=== PATIENT | female | born 1985 | race Hispanic/Latino ===

== ENCOUNTER → 2017-09-02 14:32 | Outpatient (CLI) | payer OTHER, SELFPAY ==
[2017-09-02 15:40] LABS: Add Manual Diff / Slide Review NO; Basophils Percent Auto 0.4 % (0-2); Eosinophils Percent Auto 4.6 % (2-4); Hematocrit 39.1 % (36-46); Hemoglobin 13.3 g/dL (12.0-16.0); Lymphocytes Percent Auto 17.6 % (25-40); Mean Corpuscular Volume 88.3 fL (80-100); Monocytes Percent Auto 5.5 % (3-14); Neutrophils Absolute Auto 6100 /uL (3000-5900); Neutrophils Percent Auto 71.9 % (50-75); Platelet Count 301 X10^3/uL (150-400); Red Blood Cell Count 4.43 X10^6/uL (4.0-5.2); Red Cell Distribution Width 12.6 % (11.6-14.8); White Blood Cell Count 8.4 X10^3/uL (4.5-11.0)
[2017-09-02 16:36] LABS: Hepatitis B Surface Antigen NEGATIVE s/c (NEGATIVE)
[2017-09-02 16:54] LABS: HIV 1 and 2 Antibody NEGATIVE (NEGATIVE); Hep C Virus Ab w/Reflex Quant NEGATIVE s/c (NEGATIVE)
[2017-09-04 14:04] LABS: HSV 2 IGG AB < 0.90 index (< 0.90)
[2017-09-07 18:22] LABS: Rapid Plasma Reagin NON-REACTIVE
== END ==
PROVIDERS: Visit Provider Obstetrics & Gynecology
DX: Z34.91 Encounter for supervision of normal pregnancy, unspecified, first trimester (principal)
CPT/HCPCS: 36415; 80055; 86695; 86696; 86703; 86787; 86803; 86850; 86900; 86901; 87086

== ENCOUNTER → 2017-09-04 12:59 | Outpatient (CLI) | payer OTHER, SELFPAY ==
[2017-09-04 15:13] LABS: HCG Quantitative /Beta subunit 13505 mIU/mL
== END ==
PROVIDERS: Family Provider Obstetrics & Gynecology; PCP Physician Assistant; Visit Provider Obstetrics & Gynecology
DX: Z34.91 Encounter for supervision of normal pregnancy, unspecified, first trimester (principal); Z12.4 Encounter for screening for malignant neoplasm of cervix; Z11.8 Encounter for screening for other infectious and parasitic diseases; Z11.3 Encounter for screening for infections with a predominantly sexual mode of transmission; O20.9 Hemorrhage in early pregnancy, unspecified
CPT/HCPCS: 36415; 84702

== ENCOUNTER → 2017-09-06 11:38 | Outpatient (CLI) | payer OTHER, SELFPAY ==
[2017-09-06 12:52] LABS: HCG Quantitative /Beta subunit 11247 mIU/mL
== END ==
PROVIDERS: Family Provider Obstetrics & Gynecology; PCP Physician Assistant; Visit Provider Obstetrics & Gynecology
DX: O20.9 Hemorrhage in early pregnancy, unspecified (principal); Z34.91 Encounter for supervision of normal pregnancy, unspecified, first trimester; Z12.4 Encounter for screening for malignant neoplasm of cervix; Z11.8 Encounter for screening for other infectious and parasitic diseases; Z11.3 Encounter for screening for infections with a predominantly sexual mode of transmission
CPT/HCPCS: 36415; 84702

== ENCOUNTER 2017-09-18 10:38 | Day surgery (SDC) | payer OTHER, SELFPAY ==
[2017-09-17 11:56] VITALS: BMI 34.0
[2017-09-18] VITALS (7 sets, daily range): BP systolic 106–138; BP diastolic 69–103; PULSE 77–100; RESP 12–19; TEMP 36.1–36.7; O2SAT 97–100; BMI 32.9
--- NOTE | 2017-09-18 | PATH_ITS ---
[facility] Accession Number: [id number] . 01 Material submitted: . PRODUCTS OF CONCEPTION . 02 Diagnosis: Products of Conception: Partially necrotic immature placental tissue with avascular chorionic villi. MRV/09/19/2017 . 02 Electronically signed: . Gianluca Storey MD, Pathologist NPI- [id number] . 01 Gross description: . Received in one formalin-filled container labeled with the patient's name and labeled products of conception, are multiple portions of red-brown tissue and blood which aggregate to 4.0 x 2.0 x 1.0 cm. No grossly recognizable parts are observed. Peripheral Equipment Operator sections are submitted in two cassettes. ([id number]) /FRR . 02 Pathologist provided ICD-10: O02.1 . 02 CPT . 880523 Performed at: 01 [facility] [address], [place], [place] [id number] MD Sonido Sales MD Phone: [phone] Performed at: 02 [facility] [address] [place], [place] [id number] MD Jamal Amador MD Phone: [phone]
[2017-09-18] MEDS: LACTATED RINGERS 1,000 ML 42 ML IV (11:30)
--- NOTE | 2017-09-18 11:50 | PM.PREOP ---
Pre-operative Note Interval Note Pre-op Check: Yes History & Physical exam performed today by Physician Changes: No
[2017-09-18] MEDS: APREPITANT 40 MG CAPSULE PO (11:52)
--- NOTE | 2017-09-18 12:17 | SUR.OPER ---
Lithotomy on padded OR bed, head on pillow, arms secured on padded arm boards at <90 degrees abduction. Legs secured in padded yellow fins stirrups.
--- NOTE | 2017-09-18 13:03 | SUR.PHASEII ---
pt to opd from pacu at 1255, vss, no co's of pain or n/v, sister st side , taking fluids
--- NOTE | 2017-09-18 13:57 | SUR.PHASEII ---
pt dressed , glendy pad dry no drainage noted , no co's pain or n/v , ready to go home , vss
--- NOTE | 2017-10-02 06:55 | PM.GYNOP.1 ---
Operative Date/Time/Diagnoses Date of procedure: 09/18/17 Time of procedure: 13:30 Pre-op diagnosis: Missed at 8 weeks Post-op diagnosis: same Procedure: Procedures Operation Date: 09/18/17 11:45 Actual Procedures Side Surgeon p Dilation and Curettage-Suction Armida Zednejas MD suction D&C Indications: Missed at 8 weeks Surgeon: Armida Zendejas Anesthesia Type: General Operative Notes Findings: 8 week size anteverted uterus Large amount of products of conception Closure Type: not applicable Specimen(s): uterine contents Estimated blood loss (mL): 100 Blood products transfused: none Procedure in detail: After informed consent was obtained, the patient was taken to the operating room where she was placed in the dorsal supine position. After adequate LMA general anesthesia was achieved, she was placed in the dorsal lithotomy position, and prepped and draped in the usual sterile fashion. A bivalve speculum was placed into the vagina, and the anterior lip of the cervix grasped with a single-tooth tenaculum. The cervical os was sequentially dilated until the # 8 Curved plastic curette could passed easily into the endometrial cavity. Several passes with suction revealed a large amount of tissue and fluid. After several passes there was blood only. The plastic curette was removed from the uterus. Gentle sharp curettage was performed yielding blood only. 1 more pass of suction revealed blood only. The instruments were removed from the uterus. The single-tooth tenaculum was removed from the anterior lip of the cervix. The bivalve speculum was removed from the vagina. Sponge, lap, and instrument counts were correct x2. The patient tolerated the procedure well, and was taken to PACU in stable condition. Complications: none Post-operative Condition: stable Disposition: PACU Plan for aftercare: Home after recovery
== END 2017-09-18 13:50 | disposition home or self-care (01) ==
PROVIDERS: Family Provider Obstetrics & Gynecology; PCP Family Medicine; Visit Provider Obstetrics & Gynecology
PROC: (CPT 58120; principal; 2017-09-18 11:45)
DX: O02.1 Missed abortion (principal); Z3A.08 8 weeks gestation of pregnancy
CPT/HCPCS: 59820; J1100; J1885; J2250; J2405; J2704; J3010; J8501

== ENCOUNTER → 2018-04-07 13:44 | Outpatient (CLI) | payer OTHER, SELFPAY | PROVIDERS: PCP Physician Assistant; Visit Provider Obstetrics & Gynecology | DX: Z34.91 Encounter for supervision of normal pregnancy, unspecified, first trimester (principal); Z3A.12 12 weeks gestation of pregnancy | CPT/HCPCS: 36415; 86850; 86900; 86901 ==

== ENCOUNTER → 2018-05-06 10:07 | Outpatient (CLI) | payer OTHER, SELFPAY | PROVIDERS: PCP Physician Assistant; Visit Provider Obstetrics & Gynecology | DX: Z34.82 Encounter for supervision of other normal pregnancy, second trimester (principal) | CPT/HCPCS: 87086 ==

== ENCOUNTER → 2018-05-06 10:13 | Outpatient (CLI) | payer OTHER, SELFPAY ==
[2018-05-12 08:39] LABS: AFP, Serum 45.5 ng/mL; Calc Gestational Age 16.3; Cigarette Smoker N; Donated Egg NOT GIVEN; Donor Egg Age NOT GIVEN; Estriol, Free 1.05 ng/mL; Inhibin A, Dimeric 178 pg/mL; Maternal Ethnicity HISPANIC; Maternal Weight 177 lbs; Number of Fetuses NOT GIVEN; Previous Pregnancy Down Syndro NOT GIVEN; hCG, MoM 1.03; hCG, Serum 30.9 IU/mL
== END ==
PROVIDERS: PCP Physician Assistant; Visit Provider Obstetrics & Gynecology
DX: Z34.82 Encounter for supervision of other normal pregnancy, second trimester (principal); Z3A.16 16 weeks gestation of pregnancy
CPT/HCPCS: 36415; 82105; 82677; 84702; 86336; 87086

== ENCOUNTER → 2018-05-12 09:55 | Outpatient (CLI) | payer OTHER, SELFPAY ==
[2018-05-12 11:14] LABS: Influenza A and B by PCR Rapid Negative (Negative)
== END ==
PROVIDERS: PCP Physician Assistant; Visit Provider Physician Assistant
DX: R05 Cough (principal)
CPT/HCPCS: 87400

== ENCOUNTER → 2018-05-30 13:38 | Outpatient (CLI) | payer OTHER, SELFPAY ==
--- NOTE | 2018-05-30 13:39 | DI.US.S_ITS ---
PROCEDURE: US OB >= 14 WEEKS FETUS INDICATIONS: Anatomy Survey OUTSIDE/PRIOR DATING DATA: Last menstrual period (LMP): 01/12/18. LMP-based estimated date of delivery (MAXIMUS): 10/19/18. First dating scan (date and location): 03/25/18. Estimated date of delivery (MAXIMUS) from first dating scan: 10/14/18. TECHNIQUE: Real-time scanning was performed of the fetus, with image documentation and biometric measurements. Endovaginal scanning: No [facility]. FINDINGS: General: A single living intrauterine gestation is present. Presentation: Breech. Placenta: Placental position is posterior, without previa. Amniotic fluid index: 14.9 cm, normal range is 5-24 cm. heart rate: 155 beats per minute. Maternal cervical canal: 4.0 cm long. Normal lower limit is 2.5 cm. biometrics: Biparietal diameter: 19 weeks 2 days Head circumference: 19 weeks 6 days Abdominal circumference: 21 weeks 1 day Femur length: 1 weeks 2 days Estimated gestational age from initial scan: 20 weeks 3 days Composite gestational age from present scan: 20 weeks 1 day Estimated weight and percentile: 367 g; 57 percentile Measurement variability for biometric dating: +/- 7 days from 14 weeks to 15 weeks 6 days gestation, +/- 10 days from 16 weeks to 21 weeks 6 days gestation, +/- 2 weeks from 22 weeks to 27 weeks 6 days gestation, +/- 3 weeks for 28 weeks gestation or later. weight reference: 4500 g or EFW >90/95% is considered macrosomia or large for gestational age. EFW <10% is small for gestational age. EFW 5% or less is considered intra-uterine growth restriction. Anatomic survey: Neuro: Ventricles are non-dilated at less than 10 mm. Cisterna magna is normal at 3-11 mm. Cerebellum is normal in size and morphology. Nuchal skin fold: Normal at less than 6 mm between 14-21 weeks gestational age. Face: Not well-seen. Spine: Not well-seen. Heart: Not well-seen. Diaphragm: Diaphragm is intact. Stomach: Left-sided stomach is present. Kidneys: No hydronephrosis. Normal is less than 5 mm in 2nd trimester, less than 7 mm in 3rd trimester. Cord: 3-vessel cord has orthotopic insertion. Bladder: Normal in size. Extremities: Lower limbs no well-seen. IMPRESSION: 1. Single living IUP redemonstrated and interval growth is normal. 2. Limited anatomic survey. Followup recommended. Dictated by: Niraj DURAN Interpreted: Fabby Cummings MD on 05/30/2018 at 15:11 Approved by: Fabby Cummings M.D. on 05/30/2018 at 16:59
== END ==
PROVIDERS: PCP Physician Assistant; Visit Provider Obstetrics & Gynecology
DX: Z34.82 Encounter for supervision of other normal pregnancy, second trimester (principal); Z3A.20 20 weeks gestation of pregnancy
CPT/HCPCS: 76811

== ENCOUNTER → 2018-06-25 13:08 | Outpatient (CLI) | payer OTHER, SELFPAY ==
--- NOTE | 2018-06-25 13:34 | DI.US.S_ITS ---
PROCEDURE: US OB FOLLOW UP INDICATIONS: RE-EVALUATE ANATOMY OUTSIDE/PRIOR DATING DATA: Last menstrual period (LMP): 01/12/18. LMP-based estimated date of delivery (MAXIMUS): 10/19/18. First dating scan (date and location): 03/25/18. Estimated date of delivery (MAXIMUS) from first dating scan: 10/14/18 TECHNIQUE: Real-time scanning was performed of the fetus, with image documentation and biometric measurements. Endovaginal scanning: Not requested. COMPARISON: None. FINDINGS: General: A single living intrauterine gestation is present. Presentation: Breech. Placenta: Placental position is posterior, without previa. Amniotic fluid index: 17.9 cm, normal range is 5-24 cm. heart rate: 140 beats per minute. Maternal cervical canal: 3.7 cm long. Normal lower limit is 2.5 cm Expected gestational age is 23 weeks 6 days by prior ultrasound. Normal appearance of the facial profile, nose lips, spine, cardiac outflow tracts and lower extremities. IMPRESSION: Single living IUP redemonstrated and today's exam demonstrating normal appearance of the facial profile, nose lips, spine, cardiac outflow tracts and lower extremities. Dictated by: Niraj DURAN Interpreted: Hossein Bird MD on 06/25/2018 at 14:49 Approved by: Hossein Bird M.D. on 06/26/2018 at 10:01
== END ==
PROVIDERS: PCP Physician Assistant; Visit Provider Obstetrics & Gynecology
DX: Z36.89 Encounter for other specified antenatal screening (principal); Z3A.23 23 weeks gestation of pregnancy
CPT/HCPCS: 76816

== ENCOUNTER → 2018-07-08 13:14 | Outpatient (CLI) | payer OTHER, SELFPAY ==
[2018-07-08 15:17] LABS: Hematocrit 35.5 % (36-46); Hemoglobin 12.1 g/dL (12.0-16.0)
[2018-07-08 15:22] LABS: GTT (PREG) 1 Hour PP 50gm Dose 153 mg/dL (76-139)
== END ==
PROVIDERS: PCP Physician Assistant; Visit Provider Obstetrics & Gynecology
DX: Z34.82 Encounter for supervision of other normal pregnancy, second trimester (principal)
CPT/HCPCS: 36415; 82950; 85014; 85018

== ENCOUNTER → 2018-09-05 08:39 | Outpatient (CLI) | payer OTHER, SELFPAY ==
[2018-09-05 09:48] LABS: Glucose Fasting Gestational 84 mg/dL (76-95)
[2018-09-05 10:33] LABS: Glucose 1 Hour Gest 184 mg/dL (76-180)
[2018-09-05 11:43] LABS: Glucose 2 Hour Gest 159 mg/dL (76-155)
[2018-09-05 11:58] LABS: Glucose Tol Interp,Gestational INTERPRETATION
[2018-09-05 12:26] LABS: Glucose 3 Hour Gest 169 mg/dL (76-140)
== END ==
PROVIDERS: PCP Physician Assistant; Visit Provider Obstetrics & Gynecology
DX: O99.810 Abnormal glucose complicating pregnancy (principal)
CPT/HCPCS: 36415; 82951; 82952

== ENCOUNTER → 2018-09-17 15:27 | Outpatient (CLI) | payer OTHER, SELFPAY ==
[2018-09-18 15:48] LABS: Strep Grp B PCR POS for Grp B Strep
== END ==
PROVIDERS: PCP Physician Assistant; Visit Provider Obstetrics & Gynecology
DX: Z34.83 Encounter for supervision of other normal pregnancy, third trimester (principal)
CPT/HCPCS: 87653

== ENCOUNTER 2018-10-09 06:29 | Inpatient (IN) | payer OTHER, SELFPAY ==
[2018-10-09] VITALS (7 sets, daily range): BP systolic 105–117; BP diastolic 67–75; PULSE 58–71; RESP 11–16; TEMP 36–36.3; O2SAT 97–100
[2018-10-09] MEDS: LACTATED RINGERS 1,000 ML 1000 ML IV (07:17)
[2018-10-09 07:33] LABS: Add Manual Diff / Slide Review NO; Basophils Absolute Auto 100 /uL (0-100); Basophils Percent Auto 1.3 % (0-2); Eosinophils Absolute Auto 200 /uL (0-450); Eosinophils Percent Auto 1.8 % (2-4); Hematocrit 34.7 % (36-46); Hemoglobin 12.2 g/dL (12.0-16.0); Lymphocytes Absolute Auto 1700 /uL (1100-4500); Lymphocytes Percent Auto 18.6 % (25-40); Mean Corpuscular HGB Conc 35.2 % (30-36); Mean Corpuscular Hemoglobin 30.4 PG (26-34); Mean Corpuscular Volume 86.3 fL (80-100); Monocytes Absolute Auto 600 /uL (0-900); Monocytes Percent Auto 6.4 % (3-14); Neutrophils Absolute Auto 6400 /uL (1500-7000); Neutrophils Percent Auto 71.9 % (50-75); Platelet Count 236 X10^3/uL (150-400); Red Blood Cell Count 4.02 X10^6/uL (4.0-5.2); Red Cell Distribution Width 13.8 % (11.6-14.8); White Blood Cell Count 8.9 X10^3/uL (4.5-11.0)
[2018-10-09] MEDS: LACTATED RINGERS 1,000 ML 42 ML IV (07:55)
--- NOTE | 2018-10-09 08:25 | PM.PREOP ---
Pre-operative Note Interval Note History & Physical reviewed/Exam performed by Physician: Yes Changes to H&P: No
[2018-10-09] MEDS: CITRIC ACID/SODIUM CITRATE 15 ML SOLUTION 30 ML PO (08:30)
[2018-10-09] MEDS: CEFAZOLIN 2 GM/100 ML FROZ.PIGGY IV (08:35)
--- NOTE | 2018-10-09 09:14 | SUR.OPER ---
Supine on Padded OR bed, head on pillow, safety belt at thigh, arms secured on padded arm boards at <90 degrees abduction. Bump under right buttock. Legs uncrossed with pillow under knees, gel pad to heels, tape over blanket to lower legs.
--- NOTE | 2018-10-09 09:22 | SUR.OPER ---
VIABLE FEMALE BORN AT 0917 APGARS 8 AND 9
--- NOTE | 2018-10-09 09:23 | SUR.OPER ---
PLACENTA AND CORD BLOOD SENT TO LABOR AND DELIVERY WITH BABY
[2018-10-09] MEDS: ACETAMINOPHEN IV 1,000 MG/100 ML VIAL 400 MG IV (09:28)
[2018-10-09] MEDS: LACTATED RINGERS 1,000 ML 100 ML IV ×2 (09:43→21:45)
--- NOTE | 2018-10-09 10:57 | SUR.PHASEI ---
PACU note: VSS, no complaints of pain. Tolerating ice chips without any nausea. FF @ 3 below U. Patricia pad dry, no bleeding or clots noted. Stable for transfer to [facility]. Telephone report called. Vinh Cabrera RN.
[2018-10-09 11:19] LABS: Hematocrit 33.8 % (36-46); Hemoglobin 11.9 g/dL (12.0-16.0)
[2018-10-09] MEDS: KETOROLAC 30 MG/ML VIAL IV ×2 (15:53→21:46)
[2018-10-10] MEDS: KETOROLAC 30 MG/ML VIAL IV (03:35)
[2018-10-10 07:00] VITALS: BP 114/74; PULSE 72; RESP 16; TEMP 37.1
[2018-10-10] MEDS: DOCUSATE 250 MG CAPSULE PO (11:25)
[2018-10-10] MEDS: IBUPROFEN 600 MG TABLET PO ×2 (11:25→18:41)
[2018-10-10] MEDS: LANOLIN OINT 7 GM 1 APPLIC TOP (11:47)
[2018-10-10] MEDS: OXYCODONE/ACETAMINOPHEN 5/325 TABLET 2 TAB PO ×3 (12:15→20:06)
[2018-10-11] MEDS: IBUPROFEN 600 MG TABLET PO ×2 (00:49→06:54)
[2018-10-11] MEDS: OXYCODONE/ACETAMINOPHEN 5/325 TABLET 2 TAB PO ×3 (00:50→10:44)
[2018-10-11 10:38] VITALS: BP 114/74; PULSE 72; RESP 16; TEMP 37.1
[2018-10-11] MEDS: PRENATAL VIT,CALC/IRON/FOLIC 1 TABLET 1 TAB PO (10:44)
[2018-10-11] MEDS: DOCUSATE 250 MG CAPSULE PO (10:44)
--- NOTE | 2018-10-16 12:15 | P.OP_ITS ---
Operative Date/Time/Diagnoses Date of procedure: 10/09/18 Time of procedure: 09:45 Pre-op diagnosis: 39 weeks gestation Previous section Post-op diagnosis: same Procedure & Clinicians Procedure: Procedures Operation Date: 10/09/18 08:30 Actual Procedures Side Surgeon p Section Armida Zendejas MD Indications: 39 weeks gestation Previous section Surgeon: Armida Zendejas Credit Correspondence Clerk: Renee Warren Anesthesia Type: Spinal Operative Notes Findings: Live female infant Very thin lower uterine segment Normal tubes and ovaries Closure Type: primary Specimen(s): other (Placenta, cord bloods) Applied: catheter Estimated blood loss (mL): 500 Blood products transfused: none Procedure in detail: The patient was taken to the operating room where she was placed in the seated position. Spinal anesthesia with Duramorph was administered. The patient was then placed in the dorsal supine position with a leftward tilt. She was prepped and draped in the usual sterile fashion. A timeout was performed. After spinal analgesia was found to be adequate, a Pfannenstiel skin incision was made through the previous incision and carried through to the underlying layer fascia. The fascia was nicked in the midline, and the incision extended bilaterally with the Lozoya scissors. The superior aspect of the fascial incision was grasped with a Garett clamps, elevated, and the underlying rectus muscles dissected off sharply and bluntly. Attention was then turned to the inferior aspect of this incision which in a similar fashion was grasped with a Garett clamps, elevated, and the underlying rectus muscles dissected off sharply and bluntly. The rectus muscles were in the midline. The peritoneum was identified, grasped between 2 hemostats, and entered sharply with the Metzenbaum scissors. This incision was extended superiorly and inferiorly with good visualization of the bladder. The bladder blade was inserted. The vesicouterine peritoneum was identified, grasped with the pickup, and entered sharply with the Metzenbaum scissors. This incision was extended bilaterally, and the bladder flap was created digitally. The bladder blade was reinserted. The lower uterine segment was found to be very thin. The amniotic fluid and hair could be seen through the wall of the uterus. The lower uterine segment was incised in a transverse fashion with the scalpel. Upon entering the amniotic sac there was moderate amount of clear amniotic fluid. The 's head was delivered without difficulty. The nose and mouth were suctioned with bulb suction. The remainder of the body delivered without difficulty. The cord was double clamped and cut. The infant was handed off to waiting RN and RT. The placenta was delivered manually. The uterus was cleared of all clots and debris. The uterine incision was repaired with #1 chromic in a running interlocking fashion, and a second layer the same suture was used for an imbricating layer. Hemostasis was achieved. The tubes and ovaries were examined and were found to be normal. The gutters were cleared of all clots and debris. The bladder flap was reapproximated using 2-0 Vicryl in a running f ashion. The parietal peritoneum was closed using 2-0 Vicryl in a running fashion. The fascia was reapproximated using 0 Vicryl in a running fashion. The subcutaneous layer was copiously irrigated with warm normal saline. 5 simple interrupted sutures of 3-0 Vicryl were placed to reapproximate the subcutaneous layer. The skin was closed with 4-0 undyed Vicryl in a subcuticular fashion. Steri-Strips were placed. An Aquacell dressing was placed. The uterus was expressed of a small amount of old blood. Sponge, lap, and instrument counts were correct x-2. The patient tolerated the procedure well, and was taken to PACU in stable condition. Complications: none Post-operative Condition: stable Disposition: PACU Plan for aftercare: To Center after recovery
--- NOTE | 2018-10-16 12:19 | PM.PNPO.1 ---
Subjective Subjective Date Patient Seen: 10/10/18 Time Patient Seen: 09:00 Interval history: Patient is postop day # 1 status post repeat low-transverse section. Pain is well controlled. She has voided without the catheter. She is ambulating without assistance. No nausea or vomiting. Exam Vital Signs (past 8 hours): Oxygen Delivery Method Room Air Narrative Exam Narrative: Generally: Patient is sitting up in bed, holding infant, no acute distress Lungs: Clear to auscultation bilaterally Cardiovascular: Regular rate and rhythm Fundus: Firm at U -1 Extremities: Negative Homans, no edema Objective Labs Result Diagrams: 10/09/18 11:05 Assessment & Plan Post-op Postoperative Procedures: Procedures Operation Date: 10/09/18 08:30 Actual Procedures Side Surgeon p Section Armida Zendejas MD Postoperative day: 1 Postoperative status: doing well Postoperative plan: routine post-op care Time Spent With Patient Time with patient: 15-24 minutes
--- NOTE | 2018-10-16 12:21 | PM.OBDS.1 ---
Discharge Providers Provider Date of admission: 10/09/18 06:29 Discharge Date: 10/11/18 Primary care physician: Cathy Goldman PA-C Consults: 10/10/18 10:24 Consult to Final Rail Cutter Routine Comment: Discharge provider: Armida Zendejas MD Summary Hospital Course Date Patient Seen: 10/11/18 Time Patient Seen: 08:30 Procedures: Repeat low-transverse section Spinal anesthesia Hospital Course: Patient was admitted on 10/09/2018 for a scheduled repeat low-transverse section. She underwent the repeat section without complication. Her course was unremarkable. Peripartum Data Delivery Method: Section Laceration description: None Episiotomy description: None Procedures: Spinal anesthesia Repeat low-transverse section complications: none Status at Discharge Cognitive/behavioral status at discharge: oriented Functional status at discharge: independent ambulation Overall status at discharge: patient is progressing back to baseline Time Spent with Patient Time attestation: Total time spent providing and/or coordinating discharge services: Time spent: Less than 30 minutes Objective Labs Result Diagrams: 10/09/18 11:05 Exam Vital Signs (past 8 hours): Oxygen Delivery Method Room Air Narrative Exam Narrative: Generally: Patient walking around in room, no acute distress Fundus: Firm at U -2 Incision: Clean dry and intact with Aquacel dressing Extremities: Negative Homans, no edema Discharge Plan Discharge Plan Patient Disposition: Home Discharge comment: Call with fever, chills, redness or drainage around incision or bleeding vaginally more than a pad in an hour Discharge Med Rec/Prescriptions Prescriptions: New docusate sodium [Colace] 100 mg capsule 200 mg PO DAILY Qty: 20 RF: 2 Continued [id number],crb-folic [Kosher Plus Iron] 30 mg iron- 1 mg tablet 1 tab PO DAILY Qty: 100 RF: 3 albuterol sulfate 90 mcg/actuation HFA aerosol inhaler 2 puff INHALATION Q4-6H PRN (Reason: shortness of breath or wheezing) Qty: 8 RF: 0 No Action (DME) Double Electric breast Pump and Supplies 0 .ROUTE .MEDSUPPLY Qty: 1 RF: 0 (DME) RiteFlo Aerochamber spacer See Dose Instructions .ROUTE .MEDSUPPLY Qty: 1 RF: 0 (DME) FreeStyle Lite Strips strip See Dose Instructions .ROUTE .MEDSUPPLY Qty: 50 RF: 2 (DME) blood-glucose meter [Blood Glucose Monitoring] kit See Dose Instructions .ROUTE .MEDSUPPLY Qty: 1 RF: 0 (DME) lancets 28 gauge misc See Dose Instructions .ROUTE .MEDSUPPLY Qty: 50 RF: 2 Follow up/Referrals: Armida Zendejas MD [Physician] - 1 Week (Piease call Saturday, September for 1 week appontment with for aquacell dressing removal) Provider Discharge Instructions Diet: Regular Skin/Wound/Dressing Care Report to your healthcare provider any signs of infection, such as:: chills, fever, increased pain, unusual drainage and unusual redness Dressing: Do not remove Visit Report/Discharge Packet Instructions: DI for Discharge Data Primary Care Provider: Cathy Goldman Discharges patient from system. Discharge Date/Time: 10/11/18 12:23
== END 2018-10-11 12:23 | disposition home or self-care (01) | DRG 788 ==
PROVIDERS: Admitting Provider Obstetrics & Gynecology; PCP Physician Assistant; Visit Provider Obstetrics & Gynecology
PROC: 10D00Z1 Extraction of Products of Conception, Low, Open Approach (ICD-10-PCS; CPT 59514; principal; 2018-10-09 08:30)
DX: O34.211 Maternal care for low transverse scar from previous cesarean delivery (principal); Z3A.39 39 weeks gestation of pregnancy; Z37.0 Single live birth
CPT/HCPCS: 59050; 59510; 59514; 85014; 85018; 85025; 86850; 86900; 86901; J0131; J0171; J0690; J1885; J2274; J2405; J2590

== ENCOUNTER → 2025-01-18 08:30 | Outpatient (CLI) | payer OTHER, SELFPAY ==
[2025-01-18 08:53] LABS: Add Manual Diff / Slide Review NO; Hematocrit 40.4 % (36-46); Hemoglobin 13.8 g/dL (12.0-16.0); Lymphocytes Absolute Auto 1800 /uL (1100-4500); Mean Corpuscular HGB Conc 34.2 % (30-36); Mean Corpuscular Hemoglobin 29.4 PG (26-34); Mean Corpuscular Volume 86.0 fL (80-100); Platelet Count 287 X10^3/uL (150-400)
[2025-01-18 09:02] LABS: Alanine Aminotransferase 17 IU/L (<35); Albumin 4.7 g/dL (3.5-5.0); Albumin Globulin Ratio 1.4 (1.0-2.8); Alkaline Phosphatase 73 U/L (38-126); Blood Urea Nitrogen 12 mg/dL (7-17); Calcium 9.4 mg/dL (8.4-10.2); Carbon Dioxide 23 mmol/L (22-32); Chloride 108 mmol/L (98-107); Cholesterol 204 mg/dL (140-199); Estimated Glomerular Filt Rate > 60 mL/min (>60); Globulin 3.4 g/dL (1.7-4.1); Glucose 103 mg/dL (70-99); HDL Cholesterol 49 mg/dL (40-60); HEMOLYSIS < 15 (0-50); Potassium 4.3 mmol/L (3.4-5.1); Sodium 139 mmol/L (137-145); Total Protein 8.1 g/dL (6.3-8.2); Triglycerides 230 mg/dL (35-150)
[2025-01-18 09:05] LABS: Hemoglobin A1C% w Est Avg Glu 5.2 % (4.0-6.0)
[2025-01-18 10:49] LABS: TSH w/ Reflex to FT4 1.02 uIU/mL (0.47-4.68)
== END ==
PROVIDERS: PCP Family Medicine; Referring Provider Family Medicine; Visit Provider Family Medicine
DX: Z13.220 Encounter for screening for lipoid disorders (principal); Z13.1 Encounter for screening for diabetes mellitus; R23.8 Other skin changes; Z80.0 Family history of malignant neoplasm of digestive organs; Z80.8 Family history of malignant neoplasm of other organs or systems; Z68.36 Body mass index [BMI] 36.0-36.9, adult; Z87.59 Personal history of other complications of pregnancy, childbirth and the puerperium
CPT/HCPCS: 36415; 80053; 80061; 83036; 84443; 85025